=== PATIENT | female | born 1995 | race Caucasian/White ===

== ENCOUNTER 2018-11-30 16:36 | Emergency (ER) | payer OTHER, SELFPAY ==
[2018-11-30 16:36] VITALS: BP 104/62; PULSE 86; RESP 16; TEMP 36.8; O2SAT 97; BMI 29.9
--- NOTE | 2018-11-30 17:15 | RAD_ITS ---
STUDY: X-RAY - RIGHT WRIST REASON FOR EXAM: Female, 23 years old. Fell and injured right wrist TECHNIQUE: . view(s) of the wrist were obtained. COMPARISON: None. FINDINGS: Normal visualized distal radius and ulna. Normal radiocarpal articulation. Normal distal radioulnar articulation. Normal carpal bones. Normal carpal articulations. Normal carpometacarpal articulation of the thumb. Normal second through fifth carpometacarpal articulations. Normal visualized metacarpal bones. The soft tissue structures are unremarkable. RAD/Wrist min 3 Views IMPRESSION: Normal x-ray examination of the wrist. Electronically Signed: Leno Aburto MD at 17:57 EDT , Service support ,
--- NOTE | 2018-11-30 18:24 | ED.DCSUM_ITS ---
- ER Visit Summary Date of Service: 11/30/18 Chief Complaint: right wrist injury] History of Present Illness: The patient is a 23 F [presents the emergency department after sustaining an injury to her right wrist 2 nights ago. Patient states that she was at work when she slipped and fell injuring her right forearm and wrist. Patient does not want to file it under workman's comp. She denies any other injuries. Patient is right-hand dominant.] Physical Examination: [Right arm-patient does have some ecchymosis over the medial volar forearm as well as the ulnar aspect of the wrist. No obvious deformity. She is neurovascular intact. She got good range of motion flexion extension at the wrist.] Test Results: [X-rays of the right wrist obtained were normal] Emergency Department Course and Treatment: [Patient has a wrist splint already and does not want one here.] Treatment Plan: [She will be given work restrictions and a prescription for naproxen. ] Disposition: [Discharged home in stable condition] Impression: [Contusion/sprain right wrist status post fall] This note was generated with [employer] dictation software. It may contain incorrect words, spelling, and punctuation that were not noted in review of the chart prior to signing ED Disposition - Plan for ED Patient: Referrals: Srinivas Carballo DO [Primary Care Provider] -
--- NOTE | 2018-11-30 18:24 | ED.DEP ---
ED Disposition - Plan for ED Patient: Instructions: ED Sprain Wrist Prescriptions: Naproxen [Naprosyn] 500 mg PO BID PRN #20 tab Referrals: Srinivas Carballo DO [Primary Care Provider] - 5-7 Days
== END 2018-11-30 18:35 | disposition home or self-care (01) ==
PROVIDERS: Emergency Provider Emergency Medicine; Family Provider Student in an Organized Health Care Education/Training Program; PCP Student in an Organized Health Care Education/Training Program
DX: S63.501A Unspecified sprain of right wrist, initial encounter (principal); W01.0XXA Fall on same level from slipping, tripping and stumbling without subsequent striking against object, initial encounter; Y93.89 Activity, other specified; Y92.89 Other specified places as the place of occurrence of the external cause; Y99.0 Civilian activity done for income or pay
CPT/HCPCS: 73110; 99282

== ENCOUNTER 2019-07-01 19:48 | Emergency (ER) | payer OTHER, SELFPAY ==
[2019-07-01 19:49] VITALS: BP 116/76; PULSE 83; RESP 16; TEMP 36.7; O2SAT 95; BMI 29.7
[2019-07-01] MEDS: 0.9% Normal Saline 1,000 ML 1000 ML IV (20:33)
[2019-07-01] MEDS: Ketorolac 30 MG/ML Syringe IV (20:33)
[2019-07-01] MEDS: Metoclopramide 10 MG/2 ML Vial IV (20:34)
[2019-07-01] MEDS: DiphenhydrAMINE 50 MG/ML Syringe 25 MG IV (20:34)
--- NOTE | 2019-07-01 22:24 | ED.DCSUM_ITS ---
- ER Visit Summary Date of Service: 07/01/19 Chief Complaint: [Headache] History of Present Illness: The patient is a 24 F [presents to the emergency department complaint of headache that started about an hour ago. Patient states he can came on gradually but is now severe. Patient describes nausea and sta lizett that she is vomited x2 with it. Patient states that it feels typical to her prior migraines. Patient is on propranolol normally for them and oftentimes will take naproxen when she has a headache. She has been to the ER for these in the past. Patient also states that yesterday she was diagnosed with bronchitis. She denies any falls or head injuries.] Physical Examination: [HEENT-PERRLA, EOMI. Cranial nerves II through XII grossly intact. TMs clear. Mucous membranes moist. No adenopathy. Cardiovascular-regular rate and rhythm without murmur or ectopy Lungs-clear to auscultation, chest wall stable without crepitus or subcu emphysema Abdomen-normoactive bowel sounds, soft, nontender, no rebound or rigidity, no peritoneal signs. Neuro [id number] and heel castellano testing within normal limits, negative Romberg, negative pronator drift, fundi benign Extremities-intact ?4, normal range of motion, normal pulses, atraumatic] Test Results: [None indicated] Emergency Department Course and Treatment: [She had an IV line established was given Reglan, Benadryl, and Toradol. Patient was given a liter normal same fluid bolus. Patient's headache resolved.] Treatment Plan: [Patient advised to follow-up with her primary care physician in 3 to 5 days. Patient advised to return if worsening headache, or conditions worsen anyway.] Disposition: [Discharged home in stable condition.] Impression: [Migrainous cephalgia-resolved] This note was generated with [employer] dictation software. It may contain incorrect words, spelling, and punctuation that were not noted in review of the chart prior to signing ED Disposition - Plan for ED Patient: Referrals: Srinivas Carballo DO [Primary Care Provider] -
--- NOTE | 2019-07-01 22:26 | ED.DEP ---
ED Disposition - Plan for ED Patient: Instructions: ED, Migraine (Classical) Referrals: Srinivas Carballo DO [Primary Care Provider] - 3-5 Days
== END 2019-07-01 22:43 | disposition home or self-care (01) ==
PROVIDERS: Emergency Provider Emergency Medicine; Family Provider Student in an Organized Health Care Education/Training Program; PCP Student in an Organized Health Care Education/Training Program
DX: G43.909 Migraine, unspecified, not intractable, without status migrainosus (principal)
CPT/HCPCS: 96361; 96374; 96375; 99284; J7030; A4216

== ENCOUNTER → 2022-03-05 | Outpatient (CLI) | payer OTHER, SELFPAY ==
[2022-03-09 08:09] LABS: Alternaria tenuis <0.10 kU/L (Class 0); Aspergillus fumigatus <0.10 kU/L (Class 0); Cat Hair / Dander,Stand 0.92 kU/L (Class II); Cladosporium herbarum <0.10 kU/L (Class 0); D farinae Mite 1.05 kU/L (Class II); D pteronyssinus 0.25 kU/L (Class 0/I); Dog Epithelia <0.10 kU/L (Class 0); Gluten <0.10 kU/L (Class 0); Goose Feathers <0.10 kU/L (Class 0); Orange <0.10 kU/L (Class 0); Penicillium Notatum <0.10 kU/L (Class 0); Shrimp <0.10 kU/L (Class 0); Wheat 0.11 kU/L (Class 0/I); Yeast <0.10 kU/L (Class 0)
[2022-03-09 12:52] LABS: Milk (Cow) <0.10 kU/L (Class 0); Mouse Urine <0.10 kU/L (Class 0)
[2022-03-14 20:31] LABS: Cockroach, American <0.10
== END | disposition home or self-care (01) ==
PROVIDERS: PCP Student in an Organized Health Care Education/Training Program; Referring Provider Otolaryngology Otolaryngology/Facial Plastic Surgery; Visit Provider Otolaryngology Otolaryngology/Facial Plastic Surgery
DX: T78.40XA Allergy, unspecified, initial encounter (principal)
CPT/HCPCS: 36415; 86003

== ENCOUNTER 2025-02-18 16:15 | Emergency (ER) | payer OTHER, SELFPAY ==
[2025-02-18 16:17] VITALS: BP 126/77; PULSE 108; RESP 18; TEMP 36.2; O2SAT 100; BMI 33.4
--- NOTE | 2025-02-18 17:12 | CT_ITS ---
PROCEDURE: ABDOMEN/PELVIS W IV CONT ONLY 02/18/2025 REASON FOR EXAM: BILAT LOWER QUAD PAIN TECHNIQUE: ABDOMEN/PELVIS W IV CONT ONLY Coronal and Sagittal reconstruction series were provided. CONTRAST: 75 cc Isovue 370 One or more dose reduction techniques were used (e.g., Automated exposure control, adjustment of the mA and/or kV according to patient size, use of iterative reconstruction technique. RADIATION DOSE SUMMARY: CTDlvol: 27 mGy DLP: 1111.26 mGycm FINDINGS: The lung bases are clear. No liver masses are identified. The gallbladder is unremarkable by CT. Normal spleen. No pancreatic mass or inflammation. No renal mass, calculus or hydronephrosis. No abdominal aortic aneurysm. No bowel obstruction. No free air. No free-fluid. Cystic changes are seen in the adnexa, more prominent on the right than the left. Right adnexal cyst measures up to 5 cm with a smaller cystic area on the left. There is no free-fluid. There is no diverticulitis or appendicitis. CT/Abdomen/Pelvis W IV Cont ONLY IMPRESSION: Adnexal cystic changes bilaterally, larger on the right. No free-fluid. No ad ditional abnormal findings [facility]
--- NOTE | 2025-02-18 17:12 | ED.VIS.GI ---
HPI HPI - GI History of Present Illness Chief Complaint: Abd Pain Informant: patient Narrative Narrative: 30-year-old female presenting with diffuse lower abdominal pain radiating up the middle to her epigastrium for the past 1.5 hours. She felt a little nauseated at 1 point but no vomiting, no diarrhea, no bleeding from anywhere, no urinary symptoms, just finished her menstrual cycle today and is regular. No vaginal discharge or other vaginal symptoms. No history of any abdominal surgeries that I am aware of. PFSH PFSH Medical History Anxiety Allergy Migraine Home Medications ?Medication ?Instructions ?Recorded ?Last Taken ?Type propranolol 20 mg tablet 20 mg PO BID 02/14/14 12/10/15 History Escitalopram Oxalate 10 mg PO DAILY 12/10/15 12/10/15 History naproxen 500 mg tablet 500 mg PO BID PRN #20 tabs 11/30/18 Unknown Rx albuterol sulfate 90 mcg/actuation 2 puff inhalation Q6H PRN PRN 07/01/19 Unknown History aerosol inhaler Wheezing benzonatate 100 mg capsule 1 cap PO TID PRN Cough 07/01/19 Unknown History oxymetazoline 0.05 % nasal spray 2 spray NASAL BID PRN Congestion 07/01/19 Unknown History Allergy/AdvReac Type Severity Reaction Status Date / Time lactose AdvReac Nausea Verified 02/18/25 16:16 shrimp AdvReac Hives Verified 02/18/25 16:16 Social History Smoking Status: Never smoker ROS ROS ED Constitutional Constitutional ED: Denies chills or fever(s) Eyes Eyes: Denies change in vision or diplopia ENT ENT ED: Denies rhinorrhea or sore throat Cardiovascular Cardiovascular: Denies chest pain or palpitations Respiratory/Chest Respiratory/Chest: Denies cough or dyspnea Gastrointestinal Gastrointestinal: Reports abdominal pain and nausea; Denies diarrhea or vomiting Genitourinary Genitourinary ED: Denies dysuria or hematuria Musculoskeletal Musculoskeletal: Denies back pain or neck pain Integumentary Denies abscess or rash Neurologic Neurologic: Denies headache(s), paresthesias or weakness Psychiatric Psychiatric: Denies anxiety or suicidal thoughts EXAM Physical Exam Const Vital Signs: 02/18/25 16:17 02/18/25 18:16 Temperature 97.2 F L Temperature Source Temporal Pulse Rate 108 H 98 Respiratory Rate 18 14 Blood Pressure 126/77 H 107/78 Blood Pressure Mean 93 87 Pulse Ox 100 100 Oxygen Delivery Method Room Air Positive well nourished and well developed General Appearance ED: well developed and NAD HEENT Reports moist mucous membranes HEENT Narrative: hirsuit normocephalic and atraumatic Eyes PERRL and EOMs intact bilaterally Neck full ROM and supple Resp normal respiratory effort and clear to auscultation bilaterally Cardio regular rate, regular rhythm and no murmurs GI non-distended GI Narrative: Mildly tender both right lower quadrant and left lower quadrant. Obesity limits exam somewhat. No guarding or rebound tenderness. Auscultation: normoactive bowel sounds Palpation: soft Back/Spine no CVA tenderness General Back: other FROM Extremity normal to inspection General Extremety ED: Negative for edema, pulses abnormal or tenderness General Extremity: Negative for edema or pulses abnormal Neuro oriented x3, CN's II-XII intact bilaterally and no sensory deficits noted Sensorium / Orientation: awake and alert Motor Exam: strength 5/5 throughout Skin no rashes or lesions noted and no wounds MDM MDM MDM Narrative Medical decision making narrative: Patient has a fairly benign abdomen, but is tender in the right lower quadrant. Considerations include ovarian processes including ectopic or abscess/torsion, although she does not appear to be in a significant amount of pain to make torsion likely, kidney stone, appendicitis thought to be less likely as well given the duration of her discomfort, early pyelonephritis. Her test is negative ruling out ectopic, urinalysis negative, labs are normal, and the CT is showing nothing acute. I reviewed the images and report which I agree with. There is evidence of adnexal cysts bilaterally the largest being 5 cm on the right, no evidence of free fluid to suggest rupture or hemorrhage. I reexamined her after the Toradol and dicyclomine we gave her, she is pain-free. This makes torsion much less likely. Her vital signs are normal and she is well-appearing. Stable for discharge home, unclear if the cysts are related to her pain or not, endometriosis also in the differential, I advised outpatient follow-up if she has recurrent pain she is comfortable with that plan. Lab Data Attestation: I reviewed the patient's lab results. Labs: Laboratory Results - last 24 hr 02/18/25 02/18/25 16:25 17:51 WBC 5.9 RBC 4.27 Hgb 12.5 Hct 37.3 MCV 87.4 MCH 29.3 MCHC 33.5 RDW Std Deviation 40.4 RDW Coeff of Ramila 12.8 Plt Count 291 MPV 11.0 Immature Gran % (Auto) 0.200 Neut % (Auto) 43.7 L Lymph % (Auto) 46.9 H [place] % (Auto) 6.7 Eos % (Auto) 1.7 Baso % (Auto) 0.8 Absolute Neuts (auto) 2.6 Absolute Lymphs (auto) 2.78 Nucleated RBC % 0 Sodium 140 Potassium 3.7 Chloride 106 Carbon Dioxide 22.8 Anion Gap 11 BUN 13 Creatinine 0.84 Estim Creat Clear Calc 108.06 Est GFR (MDRD) Non-Af 94 BUN/Creatinine Ratio 14.9 Glucose 68 L Calcium 9.4 Total Bilirubin 0.29 AST 19 ALT 14 Alkaline Phosphatase 52 Total Protein 7.0 Albumin 4.5 Globulin 2.5 Albumin/Globulin Ratio 1.8 Lipase 39 Serum , Qual NEGATIVE Urine Color Straw Urine Clarity Sl. Cloudy Urine pH 6.0 Ur Specific [place] 1.015 Urine Protein 15 H Urine Glucose (UA) Normal Urine Ketones Negative Urine Occult Blood Negative Urine Nitrite Negative Urine Bilirubin Negative Urine Urobilinogen Normal Ur Leukocyte Esterase Negative Radiography Diagnostic Testing: Clinical Impression(s) from Imaging Studies Abdomen/Pelvis CT 02/18/25 17:12 IMPRESSION: Adnexal cystic changes bilaterally, larger on the right. No free-fluid. No additional abnormal findings Reading [facility] Discharge Plan Triage Chief Complaint: Abd Pain ED Provider: Magnus Diane Dx/Rx/DC Orders Clinical Impression: Acute bilateral lower abdominal pain, Bilateral ovarian cysts Instructions: Abdominal Pain, ED Ovarian Cyst Prescriptions: No Action propranolol 20 MG tablet 20 mg PO BID Escitalopram Oxalate 10 mg PO DAILY naproxen 500 MG tablet 500 mg PO BID PRN Qty: 20 0RF benzonatate 100.000 capsule 1 cap PO TID PRN (Reason: Cough) albuterol sulfate 1 INHALER inhaler 2 puff inhalation Q6H PRN PRN (Reason: Wheezing) oxymetazoline 30 ML spray,non-aerosol 2 spray NASAL BID PRN (Reason: Congestion) Patient Comments: Use 2 Sprays in the nose twice daily. Primary Care Provider: Srinivas Carballo Referrals: Srinivas Carballo, DO [Primary Care Provider] - 3-5 Days if not improving Print Language: [place]raini Disposition Disposition: Home, Self Care
[2025-02-18 17:22] LABS: Hematocrit 37.3 % (37-47); Hemoglobin 12.5 g/dL (12.0-15.0); Immature Granulocytes Count 0.010 X10^3/uL (0.0-0.0); Mean Corp Hgb Conc 33.5 g/dL (32-36); Mean Corpuscular Volume 87.4 fL (81-99); Mean Platelet Vol. 11.0 fl (6.2-12.0); NRBC Flagged by Analyzer 0 % (0-5); Platelet Count 291 K/mm3 (150-450); RBC Distribution Width CV 12.8 % (11.6-14.6); RBC Distribution Width SD 40.4 fl (35.1-43.9); Red Blood Count 4.27 M/mm3 (4.2-5.4); White Blood Count 5.9 K/mm3 (4.4-11.0)
[2025-02-18 17:36] LABS: Internal QC Validated? YES +Cl - CLEAR BKGD; Pregnancy, Serum, hCG Quali. NEGATIVE Negative
[2025-02-18 17:37] LABS: Record Kit Lot#, Serum Preg. 947241
[2025-02-18 17:56] LABS: Mucous, Urine 0 SEEN /hpf (<or=2+); Red Blood Cells-Urine 0 SEEN /hpf (0-5)
[2025-02-18 18:16] VITALS: BP 107/78; PULSE 98; RESP 14; O2SAT 100
[2025-02-18 18:23] LABS: AST(SGOT) 19 U/L (<=31); Alanine Aminotransfer ALT/SGPT 14 U/L (<=34); Albumin, Serum 4.5 g/dL (3.5-5.0); Alkaline Phosphatase 52 U/L (35-104); Anion Gap 11 (5-15); BUN 13 mg/dL (4-19); BUN/Creat Ratio 14.9 RATIO (10-20); Calcium,Total 9.4 mg/dL (7.6-11.0); Carbon Dioxide 22.8 mmol/L (21.0-32.0); Chloride 106 mmol/L (98-108); Estimated Creatinine Clearance 108.06 ml/min (50-250); Globulin 2.5 g/dL (2.2-4.2); Glucose 68 mg/dL (70-99); Lipase 39 U/L (13-75); Potassium 3.7 mmol/L (3.3-5.1)
[2025-02-18 19:42] LABS: Color, Urine Straw (Yellow); Glucose, Dipstick Normal (Normal); Ketone-Dipstick Negative (Negative); Leukocyte Esterase-Dipstick Negative /ul (Negative); Nitrite-Dipstick Negative (Negative); Occult Blood-Urine Negative /ul (Negative); Protein-Dipstick 15 mg/dl (Negative); Specific Gravity, Urine 1.015 (1.002-1.030); Urine Bilirubin Dipstick Negative (Negative)
[2025-02-18 20:00] VITALS: BP 108/60; PULSE 68; RESP 16; TEMP 36.9; O2SAT 94
[2025-02-18 20:41] LABS: Squamous Epithelial Cells - UA 5-10 SEEN /hpf (5-10)
== END 2025-02-18 20:09 | disposition home or self-care (01) ==
PROVIDERS: Emergency Provider Emergency Medicine; PCP Student in an Organized Health Care Education/Training Program; Referring Provider Emergency Medicine; Visit Provider Emergency Medicine
DX: R10.31 Right lower quadrant pain (principal); N83.201 Unspecified ovarian cyst, right side; N83.202 Unspecified ovarian cyst, left side; R10.32 Left lower quadrant pain
CPT/HCPCS: 74177; 80053; 81001; 83690; 84703; 85025; 96374; 96375; 99283; Q9967; A4216; J2405